=== PATIENT | male | born 1975 | race Caucasian/White ===

== ENCOUNTER 2019-07-01 20:36 | Inpatient (IN) | payer OTHER ==
[2019-07-01] MEDS ORDERED: ASPIRIN 81 MG CHEWABLE TABLETS PO ONE (20:42)
--- NOTE | 2019-07-01 20:42 | PDOC ---
Rapid Medical Evaluation Time Seen by Provider: 07/01/19 20:39 Medical Evaluation: 07/01/19 20:39 I performed a brief in-person evaluation of this patient. Healthy 44-year-old male with three days of chest pain radiating to left arm and back, SOB, orthopnea, cough. Pertinent physical exam findings: Tachycardic, RRR, S1/S2. Tachypneic, lungs CTAB. Mild diaphoresis. I have ordered the following: EKG CXR Cardiac labs ASA Patient to proceed to: ED for further evaluation Discharge Disposition - Diagnosis Chest pain - Referrals - Patient Instructions - Post Discharge Activity
--- NOTE | 2019-07-01 21:34 | PDOC ---
History of Present Illness - General Chief Complaint: Pain Stated Complaint: LT UNDER ARM PAIN Time Seen by Provider: 07/01/19 20:39 History Source: Patient Exam Limitations: Language Barrier - History of Present Illness Initial Comments: 07/01/19 21:31 44y M with no significant PMH presenting to ED for chest pain and SOB x3 days. Patient states the pain started 3 days ago and he does not recall what he was doing. The pain got worse today and was more constant. He feels pain with inspiration and when he lays down. Endorses dry cough. Pain is on the L side of the chest and radiates to the back. Denies fever, chills, injury, abdominal pain , n/v/d, headache. No history of OR in the family. No recent surgeries. he went to a clinic and was given Tessalon Perles and albuterol inhaler. PMD: none PMH: none PSH: appendectomy many years ago meds: none Allergies: nkda Social: smokes 2 cigarettes/day Past History - Past Medical History Allergies/Adverse Reactions: Allergies Allergy/AdvReac Type Severity Reaction Status Date / Time No Known Allergies Allergy Verified 07/01/19 20:42 COPD: No - Psycho Social/Smoking Cessation Hx Smoking History: Current every day smoker Information on smoking cessation initiated: No Review of Systems - Review of Systems Constitutional: No: Symptoms Reported HEENTM: No: Symptoms Reported Respiratory: Yes: See HPI Cardiac (ROS): Yes: See HPI ABD/GI: No: Symptoms Reported : No: Symptoms Reported Musculoskeletal: No: Symptoms Reported Integumentary: No: Symptoms Reported Neurological: No: Symptoms reported *Physical Exam - Vital Signs Last Vital Signs Temp Pulse Resp BP Pulse Ox 98.3 F 70 18 151/84 96 07/01/19 20:39 07/01/19 20:39 07/01/19 20:39 07/01/19 20:39 07/01/19 20:39 - Physical Exam General Appearance: Yes: Nourished, Appropriately Dressed. No: Apparent Distress HEENT: positive: EOMI, NAVID, Normal ENT Inspection Neck: positive: Trachea midline, Supple. negative: Carotid bruit, Lymphadenopathy (R) Respiratory/Chest: positive: Lungs Clear, Normal Breath Sounds. negative: Crackles, Rales, Rhonchi, Stridor, Wheezing, Plerual Rub Cardiovascular: positive: Regular Rhythm, Regular Rate, S1, S2. negative: Edema , JVD, Murmur Vascular Pulses: Dorsalis-Pedis (R): 2+, Doralis-Pedis (L): 2+ Gastrointestinal/Abdominal: positive: Normal Bowel Sounds, Soft. negative: Tender Musculoskeletal: negative: CVA Tenderness Extremity: positive: Normal Capillary Refill. negative: Swelling, Calf Tenderness, Erythema Integumentary: positive: Normal Color, Dry, Warm Neurologic: positive: edi consultant II-XII NML intact, Fully Oriented, Alert, Normal Mood/ Affect, Normal Response, Motor Strength 5/5 Heart Score/ECG Review - History History: Slightly suspicious - Electrocardiogram EKG: Non specific repolarization disturbance - Age Age: 45-65 - Risk Factors Risk Factors Heart Score: Yes Smoking History Based on the list above the patient has:: 1-2 risk factors - Troponin Troponin: </= normal limit - Score Heart Score - Total: 3 ED Treatment Course - LABORATORY CBC & Chemistry Diagram: 07/01/19 22:30 07/01/19 22:30 Medical Decision Making - Medical Decision Making 07/02/19 00:22 44y M with no significant PMH presenting for L sided CP, SOB, cough vitals wnl Ddx: pna, ptx, pna, pe, dissection, pleurisy, gerd/gastritis, costochondritis, mass/malignancy will obtain labs, d-dimer, coags, cardiac workup ASA orderd by E cxr shows infiltrate/consolidation v. effusion in LLL. white count elevated which can support dx of pna. will start levaquin d-dimer elevated. will obtain CTA pna v. dissection v. pe. given that patient does not have a pmd, no follow up, will benefit from admission signed out to Dr Goode Discharge - Discharge Information Problems reviewed: Yes Clinical Impression/Diagnosis: Shortness of breath Chest pain Qualifiers: Chest pain type: unspecified Qualified Code(s): R07.9 - Chest pain, unspecified Condition: Stable - Admission Yes - Follow up/Referral - Patient Discharge Instructions - Post Discharge Activity
--- NOTE | 2019-07-01 21:44 | PDOC ---
Attending Attestation - Resident Resident Name: LashondaMaria Elena - ED Attending Attestation I have performed the following: I have examined & evaluated the patient, The case was reviewed & discussed with the resident, I agree w/resident's findings & plan - HPI HPI: 07/01/19 21:56 see resident hpi - Physicial Exam PE: 07/01/19 21:57 agree with resident exam - Medical Decision Making 07/01/19 21:57 44-year-old male with smoking history complaining of several days of left-sided chest pain radiating into the shoulder blade, generally present in a supine position and relieved while sitting He has had recent URI symptoms Plan for labs including 1 troponin and a d-dimer due to pleuritic nature of pain EKG shows an incomplete right bundle with no old for comparison Heart score is 3 Due to patient's history, heart score and presentation patient will likely be discharged on NSAIDs pending results
[2019-07-01] MEDS ORDERED: ASPIRIN 81 MG CHEWABLE TABLETS ONE (21:50)
[2019-07-01 22:43] LABS: BASO % 0.7 % (0-2.0); EOS % 1.5 % (0-4.5); HEMATOCRIT 38.4 % (35.4-49); HEMOGLOBIN 12.8 GM/dL (11.7-16.9); LYMPH % 12.5 % (8-40); MCH 28.1 pg (25.7-33.7); MCHC 33.3 g/dl (32.0-35.9); MEAN CELL VOLUME 84.5 fl (80-96); MEAN PLT VOLUME 7.4 fl (7.5-11.1); MONO % 7.9 % (3.8-10.2); NEUT % 77.4 % (42.8-82.8); PLATELET COUNT 331 K/MM3 (134-434); RBC 4.54 M/mm3 (4.00-5.60); RDW 12.6 % (11.9-15.9); WHITE BLOOD COUNT 16.6 K/mm3 (4.0-10.0)
[2019-07-01 23:13] LABS: ALBUMIN 3.2 g/dl (3.4-5.0); ALK PHOS 90 U/L (45-117); ANION GAP 7 MMOL/L (8-16); BILIRUBIN,TOTAL 0.7 mg/dL (0.2-1); BLOOD UREA NITROGEN 13.5 mg/dL (7-18); CALCIUM 8.4 mg/dL (8.5-10.1); CHLORIDE 105 mmol/L (98-107); CO2 26 mmol/L (21-32); CREATININE 0.8 mg/dL (0.55-1.3); GLUCOSE,RANDOM 98 mg/dL (74-106); POTASSIUM 3.4 mmol/L (3.5-5.1); SGOT/AST 19 U/L (15-37); SGPT/ALT 28 U/L (13-61); SODIUM 138 mmol/L (136-145); TOT PROT 7.5 g/dl (6.4-8.2)
[2019-07-01 23:36] LABS: INR 1.33 (0.83-1.09); PROTHROMBIN TIME (PATIENT) 15.7 SEC (9.7-13.0)
--- NOTE | 2019-07-02 00:08 | PDOC ---
*Physical Exam - Vital Signs Last Vital Signs Temp Pulse Resp BP Pulse Ox 98.3 F 70 18 151/84 96 07/01/19 20:39 07/01/19 20:39 07/01/19 20:39 07/01/19 20:39 07/01/19 20:39 ED Treatment Course - LABORATORY CBC & Chemistry Diagram: 07/01/19 22:30 07/01/19 22:30 - ADDITIONAL ORDERS Additional order review: Laboratory Results 07/01/19 07/01/19 07/01/19 22:30 22:30 22:30 PT with INR 15.70 H INR 1.33 H PTT (Actin FS) 35.7 D-Dimer 1020 H Sodium Potassium Chloride Carbon Dioxide Anion Gap BUN Creatinine Est GFR (CKD-EPI)AfAm Est GFR (CKD-EPI)NonAf Random Glucose Calcium Total Bilirubin AST ALT Alkaline Phosphatase Creatine Kinase Troponin I B-Natriuretic Peptide Total Protein Albumin 07/01/19 07/01/19 07/01/19 22:30 22:30 22:30 PT with INR INR PTT (Actin FS) D-Dimer Sodium Cancelled 138 Potassium Cancelled 3.4 L Chloride Cancelled 105 Carbon Dioxide Cancelled 26 Anion Gap Cancelled 7 L BUN Cancelled 13.5 Creatinine Cancelled 0.8 Est GFR (CKD-EPI)AfAm Cancelled 125.04 Est GFR (CKD-EPI)NonAf Cancelled 107.88 Random Glucose Cancelled 98 Calcium Cancelled 8.4 L Total Bilirubin Cancelled 0.7 AST Cancelled 19 ALT Cancelled 28 Alkaline Phosphatase Cancelled 90 Creatine Kinase 110 Troponin I < 0.02 B-Natriuretic Peptide Cancelled 143.0 H Total Protein Cancelled 7.5 Albumin Cancelled 3.2 L 07/01/19 22:30 RBC 4.54 MCV 84.5 MCHC 33.3 RDW 12.6 MPV 7.4 L Neutrophils % 77.4 Lymphocytes % 12.5 Monocytes % 7.9 Eosinophils % 1.5 Basophils % 0.7 - Medications Given in the ED: ED Medications Discontinued Medications Generic Name Dose Route Start Last Admin Trade Name Freq PRN Reason Stop Dose Admin Aspirin 324 mg 07/01/19 20:42 07/01/19 22:12 Asa - PO 07/01/19 20:43 324 mg ONCE ONE Administration Medical Decision Making - Medical Decision Making Patient signed out by Dr. Gallego 44y M with no significant PMH presenting to ED for chest pain and SOB x3 days. Treated for LLL PNA on CXR with levaquin Tpn undetectable D-dimer>1000 EKG with incomplete RBBB pattern Pending CTA 07/02/19 00:07 CTA as read by imaging transportation maintenance specialist: "FINDINGS: There is no PE or dissection. Heart size is normal. The trachea and bronchi are patent. There is no pericardial effusion. Left lower lobe consolidation is suspicious for pneumonia. There is a moderate sized left pleural effusion. Mild right basilar atelectasis is noted.. No fractures identified. The upper abdominal structures are normal. IMPRESSION: Suspected left lower lobe pneumonia with moderate-sized left pleural effusion." 07/02/19 02:58 Patient tachypnic in the 30s Plan for admission for pneumonia as patient is without reliable follow-up 07/02/19 03:[address] Purcell who accepted patient for med/surg admission under Dr. Contreras 07/02/19 04:25 Discharge - Discharge Information Problems reviewed: Yes Clinical Impression/Diagnosis: Shortness of breath Chest pain Qualifiers: Chest pain type: unspecified Qualified Code(s): R07.9 - Chest pain, unspecified Pneumonia Qualifiers: Pneumonia type: due to unspecified organism Laterality: left Lung location: lower lobe of lung Qualified Code(s): J18.9 - Pneumonia, unspecified organism Condition: Stable - Admission Yes - Follow up/Referral - Patient Discharge Instructions - Post Discharge Activity
--- NOTE | 2019-07-02 03:59 | PN ---
<Sarai Contreras - Last Filed: 07/02/19 06:50> Teaching Attending Note Name of Resident: Solomon Singer ATTENDING PHYSICIAN STATEMENT I saw and evaluated the patient. I reviewed the resident's note and discussed the case with the resident. I agree with the resident's findings and plan as documented. SUBJECTIVE: Patient is a 44 year old man with PMH of Appendectomy and Tobacco use presenting to ED for chest pain and SOB x3 days. Patient states the pain started 3 days ago and he does not recall what he was doing. The pain got worse today and was more constant. He feels pain with inspiration and when he lays down. Endorses dry cough. Pain is on the L side of the chest and radiates to the back. Denies fever, chills, injury, abdominal pain, nausea, vomiting, diarrhea or headache. No history of AL in the family. No recent surgeries. He went to an Urgent Care center and was given Tessalon Perles and albuterol inhaler. OBJECTIVE: Alert Vital Signs Period Temp Pulse Resp BP Sys/Guerrero Pulse Ox Last 24 Hr 98.3 F-99.3 F 70-75 18-18 126-151/73-84 96-97 HEENT: No Jaundice, eye redness or discharge, PERRLA, EOMI. Normocephalic, atraumatic. External ears are normal and hearing is grossly intact. No nasal discharge. Neck: Supple, nontender. No palpable adenopathy or thyromegaly. No JVD Chest: Good effort. Poor air entry in the left base and intermittent rhonchi. Clear to percussion. Heart: Regular. No S3, rub or murmur Abdomen: Not distended, soft, nontender and no HSM. No rebound or guarding. Normal bowel sounds. Ext: Peripheral pulses intact. No leg edema. Skin: Warm and dry. No petechiae, rash or ecchymosis. Neuro: Alert. Oriented x3. CN 2-12 grossly intact. Sensation grossly intact in all four extremities and DTR are symmetric. Psych: Appropriate mood and affect. Good insight. Abnormal Lab Results 07/01/19 07/01/19 07/01/19 22:30 22:30 22:30 WBC 16.6 H MPV 7.4 L Absolute Neuts (auto) 12.8 H PT with INR 15.70 H INR 1.33 H D-Dimer Potassium 3.4 L Anion Gap 7 L Calcium 8.4 L B-Natriuretic Peptide 143.0 H Albumin 3.2 L 07/01/19 22:30 WBC MPV Absolute Neuts (auto) PT with INR INR D-Dimer 1020 H Potassium Anion Gap Calcium B-Natriuretic Peptide Albumin ASSESSMENT AND PLAN: 1. LLL Pneumonia and pleural effusion - CXR shows LLL consolidation, pleural effusion and trachea deviation to the right. Chest CTA shows suspected left lower lobe pneumonia with moderate-sized left pleural effusion, but no pulmonary embolism. Sepsis workup done and will treat with IV Rocephin and Azithromycin. Hypokalemia is unexplained - will check urine potassium, serum Mg + and treat with IV and PO KCL. Will get an ECHO, HIV testing, consult ID and Pulmonary. Consider diagnostic thoracentesis if effusion cherry not resolve promptly. Will continue comprehensive care for all of patients comorbid conditions. 2. Hypoalbuminemia - Possibly due to combined effects of malnutrition and inflammation associated with comorbid chronic conditions. Will ensure adequate dietary protein intake and also consult telephone information clerk. Urinalysis pending. 3. Tobacco Use Counseled on risks associated with tobacco use. We will provide patient all the necessary assistance to facilitate smoking cessation and prescribe Nicotine patch. 4. Obesity Counseled on the risks associated with obesity. Will provide patient all the necessary assistance, counseling and positive reinforcement to facilitate weight loss. Consult telephone information clerk. 5. DVT prophylaxis - Lovenox 40 mg SQ q 24 hours. 6. Advance directives - Full code <Franki Lawson - Last Filed: 07/02/19 15:44> Teaching Attending Note DAY ATTENDING PHYSICIAN STATEMENT I saw and evaluated the patient. I reviewed the resident's note and discussed the case with the resident. I agree with the resident's findings and plan as documented. Obtained patient from overnights; pulmonary doesn't feel that there is enough fluid to sample. Checking prealbumin FU echo. CP is not likely cardiac given compelling other explanation, age, and risks. Consider steroids for COPD; will discuss with pulmonary Full Code
[2019-07-02] MEDS ORDERED: POTASSIUM CHLORIDE TABS 20 MEQ TABLET.ER (FP) PO ONE ×4 (04:40→08:52)
--- NOTE | 2019-07-02 04:48 | HP ---
CHIEF COMPLAINT: Cough, SOB PCP: None HISTORY OF PRESENT ILLNESS: Patient is a 44 year old male no significant PMH who presents with dyspnea and dry cough for 3 days. Endorses occasional L pleuritic chest pain. No fevers, chills, nausea, vomiting, rhinorrhea, palpitations. No leg swelling, recent travel, surgery, or immobilization. No sick contacts. Pt went to urgent care today and was given benzonatate and albuterol which did not alleviate his symptoms. Recent Travel: denies PAST MEDICAL HISTORY: Denies PAST SURGICAL HISTORY: Appendectomy Social History: Smokin cigarettes/day Alcohol: denies Drugs: denies Allergies No Known Allergies Allergy (Verified 07/01/19 20:42) HOME MEDICATIONS: REVIEW OF SYSTEMS CONSTITUTIONAL: Absent: fever, chills, diaphoresis, generalized weakness, malaise, loss of appetite, weight change HEENT: Absent: rhinorrhea, nasal congestion, throat pain, throat swelling, difficulty swallowing, mouth swelling, ear pain, eye pain, visual changes CARDIOVASCULAR: pleuritic chest pain Absent: syncope, palpitations, irregular heart rate, lightheadedness, peripheral edema RESPIRATORY: cough, shortness of breath Absent: dyspnea with exertion, orthopnea, wheezing, stridor, hemoptysis GASTROINTESTINAL: Absent: abdominal pain, abdominal distension, nausea, vomiting, diarrhea, constipation, melena, hematochezia GENITOURINARY: Absent: dysuria, frequency, urgency, hesitancy, hematuria, flank pain, genital pain MUSCULOSKELETAL: Absent: myalgia, arthralgia, joint swelling, back pain, neck pain SKIN: Absent: rash, itching, pallor HEMATOLOGIC/IMMUNOLOGIC: Absent: easy bleeding, easy bruising, lymphadenopathy, frequent infections ENDOCRINE: Absent: unexplained weight gain, unexplained weight loss, heat intolerance, cold intolerance NEUROLOGIC: Absent: headache, focal weakness or paresthesias, dizziness, unsteady gait, seizure, mental status changes, bladder or bowel incontinence PSYCHIATRIC: Absent: anxiety, depression, suicidal or homicidal ideation, hallucinations. PHYSICAL EXAMINATION Vital Signs - 24 hr 07/01/19 07/01/19 20:39 21:30 Temperature 98.3 F 99.3 F Pulse Rate 70 Pulse Rate [ 75 Right Radial] Respiratory 18 18 Rate Blood Pressure 151/84 Blood Pressure 126/73 [Left Arm] O2 Sat by Pulse 96 97 Oximetry (%) GENERAL: Awake, alert, and fully oriented, in no acute distress. HEAD: Normal with no signs of trauma. EYES: Pupils equal, round and reactive to light, extraocular movements intact, sclera anicteric, conjunctiva clear. No lid lag. EARS, NOSE, THROAT: Ears normal, nares patent, oropharynx clear without exudates. Moist mucous membranes. NECK: Normal range of motion, supple without lymphadenopathy, JVD, or masses. LUNGS: Breath sounds equal, clear to auscultation bilaterally. No wheezes, and no crackles. No accessory muscle use. HEART: Regular rate and rhythm, normal S1 and S2 without murmur, rub or gallop. ABDOMEN: Soft, nontender, not distended, normoactive bowel sounds, no guarding, no rebound, no masses. No hepatomegaly or splenomegaly. MUSCULOSKELETAL: Normal range of motion at all joints. No bony deformities or tenderness. No CVA tenderness. UPPER EXTREMITIES: 2+ pulses, warm, well-perfused. No cyanosis. No clubbing. No peripheral edema. LOWER EXTREMITIES: 2+ pulses, warm, well-perfused. No calf tenderness. No peripheral edema. NEUROLOGICAL: Cranial nerves II-XII intact. Normal speech. Normal gait. PSYCHIATRIC: Cooperative. Good eye contact. Appropriate mood and affect. SKIN: Warm, dry, normal turgor, no rashes or lesions noted, normal capillary refill. Laboratory Results - last 24 hr CBC, BMP 07/01/19 22:30 07/01/19 22:30 ASSESSMENT/PLAN: Patient is a 44 year old male no significant PMH who presents with dyspnea and dry cough for 3 days. #Pneumonia CXR: LLL infiltrate CTA: no evidence of PE or dissecion; LLL pneumonia; mod-sized L pleural effusion CURB-65: 1 Pt received levaquin 750mg in ED. Will cont 1gm ceftriaxone, 50mg azithromycin Unknown risk factor for pna in pt of this age and w/o co-morbidities. ? Immunocompromised F/u HIV testing Pt may need to be tapped for evaluation of effusion Pulmonary constuled (Dr. Freed) ID (Dr. Myles) consulted #Hypokalemia Unexplained cause Will f/u Mg level Give Mg-ox 800 and replenish K+ prn #FEN IV NS @ 100ml/hr Regular diet #DVT ppx Heparin sq #Dispo Med-surg Visit type - Emergency Visit Emergency Visit: Yes ED Registration Date: 07/02/19 Care time: The patient presented to the Emergency Department on the above date and was hospitalized for further evaluation of their emergent condition. - New Patient This patient is new to me today: Yes Date on this admission: 08/24/19 - Critical Care Critical Care patient: No ATTENDING PHYSICIAN STATEMENT I saw and evaluated the patient. I reviewed the resident's note and discussed the case with the resident. I agree with the resident's findings and plan as documented. SUBJECTIVE: OBJECTIVE: ASSESSMENT AND PLAN:
[2019-07-02] MEDS ORDERED: MAGNESIUM OXIDE 400 MG TABLET (FP) PO ONE (05:34)
[2019-07-02] MEDS: SODIUM CHLORIDE 1,000 ML IV SCH ×2 (05:40→18:04)
[2019-07-02] MEDS ORDERED: MAGNESIUM OXIDE 400 MG TABLET (FP) ONE (06:42)
[2019-07-02] MEDS ORDERED: HEPARIN NA (PORCINE) 5,000 UNITS/ML 1ML VIAL ONE (06:43)
[2019-07-02 06:52] LABS: BASO % 0.3 % (0-2.0); EOS % 1.8 % (0-4.5); HEMATOCRIT 34.7 % (35.4-49); HEMOGLOBIN 12.1 GM/dL (11.7-16.9); LYMPH % 11.5 % (8-40); MCH 29.1 pg (25.7-33.7); MEAN CELL VOLUME 83.3 fl (80-96); MEAN PLT VOLUME 7.5 fl (7.5-11.1); MONO % 8.2 % (3.8-10.2); NEUT % 78.2 % (42.8-82.8); PLATELET COUNT 310 K/MM3 (134-434); RBC 4.16 M/mm3 (4.00-5.60); RDW 12.2 % (11.9-15.9); WHITE BLOOD COUNT 14.3 K/mm3 (4.0-10.0)
[2019-07-02] MEDS: HEPARIN NA (PORCINE) 5,000 UNITS/ML 1ML VIAL SQ SCH ×3 (06:54→21:59)
[2019-07-02 07:01] LABS: ALBUMIN 2.9 g/dl (3.4-5.0); BILIRUBIN,TOTAL 0.9 mg/dL (0.2-1); BLOOD UREA NITROGEN 11.6 mg/dL (7-18); CALCIUM 8.2 mg/dL (8.5-10.1); CREATININE 0.6 mg/dL (0.55-1.3); MAGNESIUM 2.5 mg/dL (1.8-2.4); POTASSIUM 3.3 mmol/L (3.5-5.1); TOT PROT 6.9 g/dl (6.4-8.2)
[2019-07-02] MEDS ORDERED: ACETAMINOPHEN 1000 MG/100 ML VIAL (NON FORMULARY) IVPB ONE (08:24)
[2019-07-02] MEDS ORDERED: ACETAMINOPHEN 325 MG TABLET (FP) PO PRN (08:26)
[2019-07-02] MEDS ORDERED: ACETAMINOPHEN INJECTION 100 ML IVPB ONE (08:52)
[2019-07-02] MEDS: CEFTRIAXONE 1 GM in DEXTROSE 5%-WATER - 50 ML IVPB SCH (10:00)
[2019-07-02] MEDS ORDERED: AZITHROMYCIN IVPB 500 MG in DEXTROSE 5%-WATER - 250 ML IVPB SCH (10:00)
[2019-07-02] MEDS ORDERED: CEFTRIAXONE 1 GM/50 ML BAG ONE (10:02)
--- NOTE | 2019-07-02 11:11 | CON.PULM ---
Consult Consult Specialty:: PULM/CCM Referred by:: Hospitalist Reason for Consultation:: SOB - History of Present Illness Chief Complaint: CP and SOB History of Present Illness: 44 M,. daily smoker "2 cigarillos at least" and no additional medical history. Admitted via the ER due to pleuritic type left sided chest discomfort and congested cough for the past 3 days. No recent travel history or sick contacts. No hemoptysis or night sweats. No known previous exposure to TB. Works in a kitchen cleaning and some maintenance. He went to an urgent care and was prescribed benzonate and Albuterol but his symptoms worsened. There is no specific history that would be consistent with OSAS. CTA: No PE / dense LL consolidation / surrounding small likely para-pneumonic effusion - History Source History Provided By: Patient Limitations to Obtaining History: No Limitations - Past Medical History Pulmonary: No: Asthma, Bronchitis, Cancer, COPD, O2 Dependent, Pneumonia, Previously Intubated, Pulmonary Embolus, Pulmonary Fibrosis, Sleep Apnea - Smoking History Smoking history: Current every day smoker Home Medications - Allergies Allergies/Adverse Reactions: Allergies Allergy/AdvReac Type Severity Reaction Status Date / Time No Known Allergies Allergy Verified 07/01/19 20:42 Review of Systems - Review of Systems Constitutional: reports: Chills, Fever, Malaise. denies: Night Sweats, Unintentional Wgt. Loss, Weakness Eyes: reports: No Symptoms HENT: reports: No Symptoms Neck: reports: No Symptoms Cardiovascular: reports: Chest Pain, Shortness of Breath. denies: Edema, Palpitations Respiratory: reports: Cough, SOB, SOB on Exertion. denies: Hemoptysis, Orthopnea, PND, Snoring, Wheezing Gastrointestinal: reports: No Symptoms Genitourinary: reports: No Symptoms Breasts: reports: No Symptoms Reported Musculoskeletal: reports: No Symptoms Integumentary: reports: No Symptoms Neurological: reports: No Symptoms Endocrine: reports: No Symptoms Hematology/Lymphatic: reports: No Symptoms Psychiatric: reports: No Symptoms Physical Exam Vital Sings: Vital Signs Temperature 98.2 F 07/02/19 09:25 Pulse Rate 84 07/02/19 09:25 Respiratory Rate 24 H 07/02/19 09:25 Blood Pressure 126/80 07/02/19 09:25 O2 Sat by Pulse Oximetry (%) 93 L 12/24/19 09:25 Constitutional: Yes: No Distress, Calm Eyes: Yes: Conjunctiva Clear, EOM Intact HENT: Yes: Atraumatic, Normocephalic Neck: Yes: Supple, Trachea Midline Cardiovascular: Yes: Regular Rate and Rhythm Respiratory: Yes: Cough, Diminished, On Nasal O2, Rhonchi, SOB, SOB on Exertion , Tachypnea. No: Accessory Muscle Use, Rales, Stridor, Wheezes ...Inspection: Yes: WNL ...Clubbing: No Gastrointestinal: Yes: Normal Bowel Sounds, Soft Renal/: Yes: WNL Musculoskeletal: Yes: WNL Extremities: Yes: WNL Edema: No Peripheral Pulses WNL: Yes Integumentary: Yes: WNL Neurological: Yes: WNL, Alert, Oriented ...Motor Strength: WNL Psychiatric: Yes: WNL, Alert, Oriented Labs: CBC, BMP 07/02/19 06:30 07/02/19 05:34 Imaging - Results Chest X-ray: Report Reviewed, Image Reviewed Cat Scan: Report Reviewed, Image Reviewed Problem List - Problems (1) Pleural effusion on left Code(s): J90 - PLEURAL EFFUSION, NOT ELSEWHERE CLASSIFIED (2) Smoker Code(s): F17.200 - NICOTINE DEPENDENCE, UNSPECIFIED, UNCOMPLICATED (3) Chest pain Code(s): R07.9 - CHEST PAIN, UNSPECIFIED Qualifiers: Chest pain type: unspecified Qualified Code(s): R07.9 - Chest pain, unspecified (4) Pneumonia Code(s): J18.9 - PNEUMONIA, UNSPECIFIED ORGANISM Qualifiers: Pneumonia type: due to unspecified organism Laterality: left Lung location: lower lobe of lung Qualified Code(s): J18.9 - Pneumonia, unspecified organism (5) Shortness of breath Code(s): R06.02 - SHORTNESS OF BREATH Assessment/Plan Rocephin / Zithromax; noted ID consult has been called Supplemental O2 as needed Check urine antigen Check sputum Do not feel there is enough fluid to safely sample at this point: if CP worsens and increasing fever: will need to R/O Empyema Daily Medrol BD [place] PRN Smoking cessation discussed Outpatient PFTs after discharge and stable Will follow Thank you. Dr Robins
[2019-07-02] MEDS ORDERED: AZITHROMYCIN IVPB 500 MG/250 ML BAG IVPB ONE (11:14)
--- NOTE | 2019-07-02 12:13 | EKG ---
Test Reason : Blood Pressure : / mmHG Vent. Rate : 077 BPM Atrial Rate : 077 BPM P-R Int : 128 ms QRS Dur : 110 ms QT Int : 368 ms P-R-T Axes : 036 005 033 degrees QTc Int : 416 ms NORMAL SINUS RHYTHM INCOMPLETE RIGHT BUNDLE BRANCH BLOCK BORDERLINE ECG NO PREVIOUS ECGS AVAILABLE Confirmed by MD Marcelo, Zohaib ([id number]) on 07/02/2019 12:12:56 PM Referred By: Confirmed By:Zohaib Robertson MD
[2019-07-02 16:26] VITALS: BMI 30.2
[2019-07-02] MEDS ORDERED: PNEUMOC 13-VAL CONJ-DIP CRM/PF 0.5 ML DISP.SYRIN IM ONE (16:26)
[2019-07-02] MEDS ORDERED: FLU VACCINE QUAD 60 MCG/0.5 ML (MDV 19-20) IM ONE (17:00)
[2019-07-02] MEDS ORDERED: PNEUMOCOCCAL 23 VACCINE 0.5 ML VIAL IM ONE (17:00)
--- NOTE | 2019-07-02 17:48 | PN ---
Progress Note (short form) - Note Progress Note: Hospitalist Medicine C/o SOB and productive cough with yellow sputum. Vitals 07/02/19 13:45 Temperature 99.1 F Pulse Rate 66 Respiratory 18 Rate Blood Pressure 131/66 Physical Exam general: resting in bed, in NAD HEENT: NCAT, PERRLA neck: supple cardio: S1, S2, RRR. no r/m/g pulm: +scattered rhonchi . w intermittent cough. mild accessory m usage abdomen: nontender, nondistended LE: 2+ pulses, no edema Laboratory Tests 07/02/19 07/02/19 07/02/19 05:34 06:30 06:30 WBC 14.3 H Hgb 12.1 Hct 34.7 L Plt Count 310 Sodium 139 Potassium 3.3 L Chloride 106 Carbon Dioxide 27 Anion Gap 7 L BUN 11.6 Creatinine 0.6 Random Glucose 113 H Albumin 2.9 L HIV 1&2 Ag/Ab, 4th Gen Pending Microbiology 07/02/19 13:16 Sputum - Expectorated Gram Stain - Final Imaging 07/01/19: CXR: weak inspiration w prominent mediastinum, fluid w atelectasis at the L base. 07/01/19: EKG: incomplete RBBB, qtc 416ms 07/02/19: Chest CTA: suboptimal opacification of the pulm vasculature, no def evidence of PE. moderate L pleural effusion with lower lobe consolidation/ atelectasis, trace R pleural effusion with basilar atelectasis. Assessment/Plan 44 year old man with PMH of Appendectomy and Tobacco use, who presented to ED for chest pain and SOB x3 days. #L pleural effusion #CAP -c/w cef, zithro (Day 2) -duonebs RQID, ventolin PRN -tylenol PRN for fever/pain -pl eff: not enough fluid to sample, however if chest pain worsens and becomes febrile, may need to r/o empyema. -on medrol 40mg q8h -on IVF , incentive spirometer -f/u sputum cx, urine legionella ag, HIV -Pulm: Dr. Robins -ID: Dr. Myles #F/E/N IV NS 100 cc/hr continue to follow lytes reg diet #PPX DVT: hep 5k TID #Dispo monitoring on med-surg smoking cessation needed outpatient PFTs after d/c once stable <Aliza Jordan - Last Filed: 07/02/19 17:58> - Note Progress Note: Seen and examined; please refer to resident note for further historical information. I agree with their assessment and plan as documented aside from as supplemented by myself. I independently verified all hickey historical information and exam findings and independently reviewed all diagnostic information. No further issues; agree with subjective documentation above. 10 sys ROS done and negative aside from HPI GENERAL: Awake, alert, and fully oriented HEAD: Normal with no signs of trauma. EYES: Pupils equal, round and reactive to light, extraocular movements intact EARS, NOSE, THROAT: Ears normal, nares patent, oropharynx clear without exudates. Moist mucous membranes. NECK: Normal range of motion, supple without lymphadenopathy, JVD, or masses. LUNGS: Breath sounds with improved rales compared to admission hpi; no crackles. No accessory muscle use. HEART: Regular rate and rhythm, normal S1 and S2 without murmur, rub or gallop. ABDOMEN: Soft, nontender, not distended, normoactive bowel sounds MUSCULOSKELETAL: Normal range of motion at all joints. No bony deformities or tenderness. No CVA tenderness. NEUROLOGICAL: Cranial nerves II-XII intact. Normal speech. Normal gait. PSYCHIATRIC: Cooperative. Good eye contact. Appropriate mood and affect. SKIN: Warm, dry, normal turgor, no rashes or lesions noted, normal capillary refill. Echo pending Tele reviewed EKG reviewed CT reviewed; PNA noted A/P: Patient with pneumonia with effusion; continue with abx. ID and pulmonary consulted. Doesn't look to be enough fluid to frankly sample out of the lungs. Likely underlying COPD but no PFTs to r/o. Monitorting on floor, continue abx , BDs, and FU with subspecialty consults as indicated. Will need to discuss if there is enough fluid to feasably sample to r/o empyema if he clinically worsens but he does not appear to be doing so. Problems include: -Acute respiratory failure, improved -Pneumonia with effusion -Likely underlying COPD pending pulm eval -Hx tobacco abuse, counseled DVT px reviewed Full Code <Franki Lawson - Last Filed: 07/05/19 02:29>
--- NOTE | 2019-07-02 17:48 | PN ---
Progress Note (short form) - Note Progress Note: ID consult dictated imp/reccd CAP continue rocephin/zithromax has gotten multiple antibioitics so there is no point to blood cultures at this point unless he has further fever check urinary antigens please call back if needed Problem List - Problems (1) Pneumonia Code(s): J18.9 - PNEUMONIA, UNSPECIFIED ORGANISM Qualifiers: Pneumonia type: due to unspecified organism Laterality: left Lung location: lower lobe of lung Qualified Code(s): J18.9 - Pneumonia, unspecified organism
[2019-07-02] MEDS ORDERED: ALBUTEROL SO4 0.083% IH SOL 2.5 MG/3 ML VIAL.NEB. NEB PRN (17:54)
[2019-07-02] MEDS: methylPREDNISolone NA SUCC 40 MG/1 ML VIAL IVPUSH SCH (18:04)
[2019-07-02] MEDS: ALBUTEROL SO4 2.5/IPRATROPIUM 0.5 INH SOL 3 ML VIAL.NEB. NEB SCH (21:34)
[2019-07-03] MEDS: methylPREDNISolone NA SUCC 40 MG/1 ML VIAL IVPUSH SCH ×3 (02:52→18:04)
[2019-07-03] MEDS: SODIUM CHLORIDE 1,000 ML IV SCH (04:29)
[2019-07-03] MEDS: HEPARIN NA (PORCINE) 5,000 UNITS/ML 1ML VIAL SQ SCH ×3 (06:30→22:08)
[2019-07-03] MEDS: ALBUTEROL SO4 2.5/IPRATROPIUM 0.5 INH SOL 3 ML VIAL.NEB. NEB SCH ×4 (08:15→21:22)
[2019-07-03 08:32] LABS: BASO % 0.3 % (0-2.0); EOS % 0.1 % (0-4.5); HEMATOCRIT 38.2 % (35.4-49); HEMOGLOBIN 12.5 GM/dL (11.7-16.9); LYMPH % 7.1 % (8-40); MCHC 32.8 g/dl (32.0-35.9); MEAN CELL VOLUME 85.4 fl (80-96); MEAN PLT VOLUME 7.7 fl (7.5-11.1); MONO % 2.4 % (3.8-10.2); NEUT % 90.1 % (42.8-82.8); PLATELET COUNT 351 K/MM3 (134-434); RBC 4.47 M/mm3 (4.00-5.60); RDW 12.5 % (11.9-15.9); WHITE BLOOD COUNT 16.8 K/mm3 (4.0-10.0)
[2019-07-03 09:07] LABS: ALBUMIN 2.7 g/dl (3.4-5.0); BILIRUBIN,TOTAL 0.5 mg/dL (0.2-1); BLOOD UREA NITROGEN 14.4 mg/dL (7-18); CALCIUM 8.2 mg/dL (8.5-10.1); CREATININE 0.7 mg/dL (0.55-1.3); MAGNESIUM 2.8 mg/dL (1.8-2.4); PHOSPHOROUS 3.5 mg/dL (2.5-4.9); POTASSIUM 4.2 mmol/L (3.5-5.1); TOT PROT 7.1 g/dl (6.4-8.2)
[2019-07-03] MEDS ORDERED: cefTRIAXone SODIUM 1 GM VIAL ONE (09:16)
[2019-07-03] MEDS ORDERED: DEXTROSE 5%-WATER - 50 ML IVPB ONE (09:16)
[2019-07-03] MEDS: CEFTRIAXONE 1 GM in DEXTROSE 5%-WATER - 50 ML IVPB SCH (09:31)
--- NOTE | 2019-07-03 10:04 | PN ---
Progress Note (short form) - Note Progress Note: Hospitalist Medicine Receiving neb tx. States breathing is better, however still congested. Vitals 07/03/19 05:00 Temperature 98.6 F Pulse Rate 74 Respiratory 18 Rate Blood Pressure 138/78 Physical Exam general: resting in bed, in NAD HEENT: NCAT, PERRLA neck: supple cardio: S1, S2, RRR. no r/m/g pulm: decreased breath sounds, few rhonchi. mild accessory m usage abdomen: nontender, nondistended LE: 2+ pulses, no edema Laboratory Tests 07/02/19 07/03/19 07/03/19 06:30 08:05 08:05 WBC 16.8 H Hgb 12.5 Hct 38.2 Plt Count 351 Sodium 140 Potassium 4.2 Chloride 109 H Carbon Dioxide 23 BUN 14.4 Creatinine 0.7 Random Glucose 162 H Magnesium 2.8 H Total Protein 7.1 Albumin 2.7 L HIV 1&2 Ag/Ab, 4th Gen Non reactive Microbiology 07/02/19 13:16 Sputum - Expectorated Gram Stain - Final 07/02/19 15:10 Urine For Antigen Detection Legionella Antigen - Preliminary 07/02/19 15:10 Urine For Antigen Detection Streptococcus pneumoniae Antigen (M - Preliminary Imaging 07/01/19: CXR: weak inspiration w prominent mediastinum, fluid w atelectasis at the L base. 07/01/19: EKG: incomplete RBBB, qtc 416ms 07/02/19: Chest CTA: suboptimal opacification of the pulm vasculature, no def evidence of PE. moderate L pleural effusion with lower lobe consolidation/ atelectasis, trace R pleural effusion with basilar atelectasis. 07/03/19: CXR: since 07/01, progressive fluid, atelectasis and or infiltrate at the left base. some new atelectasis at the right base Assessment/Plan 44 year old man with PMH of Appendectomy and Tobacco use, who presented to ED for chest pain and SOB x3 days. #L pleural effusion #CAP -c/w cef, zithro (Day 3) -duonebs RQID, ventolin PRN -tylenol PRN for fever/pain -pl eff: not enough fluid to sample, however if chest pain worsens and becomes febrile, may need to r/o empyema. -on medrol 40mg q8h -on IVF , incentive spirometer -sputum cx, legionella (-) -Pulm: Dr. Robins -ID: Dr. Myles #F/E/N will monitor off IVF continue to follow lytes reg diet #PPX DVT: hep 5k TID #Dispo monitoring on med-surg smoking cessation needed outpatient PFTs after d/c once stable <Aliza Jordan - Last Filed: 07/03/19 14:12> - Note Progress Note: Seen and examined; please refer to resident note for further historical information. I agree with their assessment and plan as documented aside from as supplemented by myself. I independently verified all hickey historical information and exam findings and independently reviewed all diagnostic information. No further issues; agree with subjective documentation above. Cough and SOB continue to improve 10 sys ROS done and negative aside from HPI GENERAL: Awake, alert, and fully oriented HEAD: Normal with no signs of trauma. EYES: Pupils equal, round and reactive to light, extraocular movements intact EARS, NOSE, THROAT: Ears normal, nares patent, oropharynx clear without exudates. Moist mucous membranes. NECK: Normal range of motion, supple without lymphadenopathy, JVD, or masses. LUNGS: Breath sounds with improwved rales compared to admission hpi; no crackles. No accessory muscle use. HEART: Regular rate and rhythm, normal S1 and S2 without murmur, rub or gallop. ABDOMEN: Soft, nontender, not distended, normoactive bowel sounds MUSCULOSKELETAL: Normal range of motion at all joints. No bony deformities or tenderness. No CVA tenderness. NEUROLOGICAL: Cranial nerves II-XII intact. Normal speech. Normal gait. PSYCHIATRIC: Cooperative. Good eye contact. Appropriate mood and affect. SKIN: Warm, dry, normal turgor, no rashes or lesions noted, normal capillary refill. Echo pending Tele reviewed EKG reviewed CT reviewed; PNA noted A/P: Patient with pneumonia with effusion; continue with abx. ID and pulmonary consulted. Doesn't look to be enough fluid to frankly sample out of the lungs. Likely underlying COPD but no PFTs to r/o. Monitorting on floor, continue abx , BDs, and FU with subspecialty consults as indicated. Will need to discuss if there is enough fluid to feasably sample to r/o empyema if he clinically worsens but he does not appear to be doing so. Problems include: -Acute respiratory failure, improved -Pneumonia with effusion -Likely underlying COPD pending pulm eval -Hx tobacco abuse, counseled DVT px reviewed Full Code <Franki Lawson - Last Filed: 07/05/19 02:31>
--- NOTE | 2019-07-03 11:08 | PN ---
Progress Note (short form) - Note Progress Note: Feels a little better today. Slightly less Pleuritic CP today. No hemoptysis. Intake & Output 06/30/19 07/01/19 07/02/19 07/03/19 23:59 23:59 23:59 23:59 Intake Total 600 800 Balance 600 800 Weight 211 lb 211 lb 9.28 oz Last Vital Signs Temp Pulse Resp BP Pulse Ox 98.6 F 74 18 138/78 93 L 07/03/19 05:00 07/03/19 05:00 07/03/19 05:00 07/03/19 05:00 07/02/19 21:00 Active Medications Acetaminophen (Tylenol -) 650 mg PO Q4H PRN PRN Reason: FEVER Albuterol Sulfate (Ventolin 0.083% Nebulizer Soln -) 1 amp NEB Q4H PRN PRN Reason: SHORT OF BREATH/WHEEZING Albuterol/Ipratropium (Duoneb -) 1 amp NEB RQID [facility] Last Admin: 07/02/19 21:34 Dose: 1 amp Heparin Sodium (Porcine) (Heparin -) 5,000 unit SQ TID [facility] Last Admin: 07/03/19 06:30 Dose: 5,000 unit Ceftriaxone Sodium 1 gm/ (Dextrose) 50 mls @ 100 mls/hr IVPB DAILY [facility] Last Admin: 07/03/19 09:31 Dose: 100 mls/hr Azithromycin (Zithromax 500mg Ivpb (Pre-Docked)) 500 mg in 250 mls @ 250 mls/ hr IVPB DAILY [facility] Methylprednisolone Sodium Succinate (Solu-Medrol -) 40 mg IVPUSH Q8H-IV [facility] Last Admin: 07/03/19 09:28 Dose: 40 mg Constitutional: Yes: No Distress, Calm Eyes: Yes: Conjunctiva Clear, EOM Intact HENT: Yes: Atraumatic, Normocephalic Neck: Yes: Supple, Trachea Midline Cardiovascular: Yes: Regular Rate and Rhythm Respiratory: Yes: Cough, Diminished, On Nasal O2, Rhonchi, Tachypnea. No: Accessory Muscle Use, Rales, Stridor, Wheezes ...Inspection: Yes: WNL ...Clubbing: No Gastrointestinal: Yes: Normal Bowel Sounds, Soft Renal/: Yes: WNL Musculoskeletal: Yes: WNL Extremities: Yes: WNL Edema: No Peripheral Pulses WNL: Yes Integumentary: Yes: WNL Neurological: Yes: WNL, Alert, Oriented ...Motor Strength: WNL Psychiatric: Yes: WNL, Alert, Oriented Labs: Laboratory Results - last 24 hr 07/02/19 07/03/19 07/03/19 06:30 08:05 08:05 WBC 16.8 H RBC 4.47 Hgb 12.5 Hct 38.2 MCV 85.4 MCH 28.0 MCHC 32.8 RDW 12.5 Plt Count 351 MPV 7.7 Absolute Neuts (auto) 15.2 H Neutrophils % 90.1 H Lymphocytes % 7.1 L D Monocytes % 2.4 L Eosinophils % 0.1 D Basophils % 0.3 Nucleated RBC % 0 Sodium 140 Potassium 4.2 Chloride 109 H Carbon Dioxide 23 Anion Gap 8 BUN 14.4 Creatinine 0.7 Est GFR (CKD-EPI)AfAm 132.09 Est GFR (CKD-EPI)NonAf 113.97 Random Glucose 162 H Calcium 8.2 L Phosphorus 3.5 Magnesium 2.8 H Total Bilirubin 0.5 AST 19 ALT 33 Alkaline Phosphatase 101 Total Protein 7.1 Albumin 2.7 L HIV 1&2 Ag/Ab, 4th Gen Non reactive Problem List - Problems (1) Pleural effusion on left Code(s): J90 - PLEURAL EFFUSION, NOT ELSEWHERE CLASSIFIED (2) Smoker Code(s): F17.200 - NICOTINE DEPENDENCE, UNSPECIFIED, UNCOMPLICATED (3) Chest pain Code(s): R07.9 - CHEST PAIN, UNSPECIFIED Qualifiers: Chest pain type: unspecified Qualified Code(s): R07.9 - Chest pain, unspecified (4) Pneumonia Code(s): J18.9 - PNEUMONIA, UNSPECIFIED ORGANISM Qualifiers: Pneumonia type: due to unspecified organism Laterality: left Lung location: lower lobe of lung Qualified Code(s): J18.9 - Pneumonia, unspecified organism (5) Shortness of breath Code(s): R06.02 - SHORTNESS OF BREATH Assessment/Plan Rocephin / Zithromax Supplemental O2 as needed Check sputum Do not feel there is enough fluid to safely sample at this point: if CP worsens and increasing fever: will need to R/O Empyema Daily Medrol BD [place] PRN Smoking cessation discussed Outpatient PFTs after discharge and stable Dr Robins Problem List - Problems (1) Pleural effusion on left Code(s): J90 - PLEURAL EFFUSION, NOT ELSEWHERE CLASSIFIED (2) Smoker Code(s): F17.200 - NICOTINE DEPENDENCE, UNSPECIFIED, UNCOMPLICATED (3) Chest pain Code(s): R07.9 - CHEST PAIN, UNSPECIFIED Qualifiers: Chest pain type: unspecified Qualified Code(s): R07.9 - Chest pain, unspecified (4) Pneumonia Code(s): J18.9 - PNEUMONIA, UNSPECIFIED ORGANISM Qualifiers: Pneumonia type: due to unspecified organism Laterality: left Lung location: lower lobe of lung Qualified Code(s): J18.9 - Pneumonia, unspecified organism (5) Shortness of breath Code(s): R06.02 - SHORTNESS OF BREATH
[2019-07-03] MEDS ORDERED: IBUPROFEN 800 MG/8 ML IJ IVPB PRN (11:09)
[2019-07-03] MEDS: AZITHROMYCIN IVPB 500 MG/250 ML BAG IVPB SCH (11:21)
[2019-07-04] MEDS: methylPREDNISolone NA SUCC 40 MG/1 ML VIAL IVPUSH SCH ×2 (02:51→09:03)
[2019-07-04] MEDS: HEPARIN NA (PORCINE) 5,000 UNITS/ML 1ML VIAL SQ SCH ×3 (06:04→21:10)
[2019-07-04] MEDS: ALBUTEROL SO4 2.5/IPRATROPIUM 0.5 INH SOL 3 ML VIAL.NEB. NEB SCH ×4 (08:00→21:09)
[2019-07-04 08:09] LABS: BASO % 0.3 % (0-2.0); HEMATOCRIT 34.8 % (35.4-49); HEMOGLOBIN 11.6 GM/dL (11.7-16.9); LYMPH % 5.8 % (8-40); MCH 28.2 pg (25.7-33.7); MCHC 33.4 g/dl (32.0-35.9); MEAN CELL VOLUME 84.3 fl (80-96); MONO % 3.6 % (3.8-10.2); NEUT % 90.3 % (42.8-82.8); PLATELET COUNT 385 K/MM3 (134-434); RBC 4.13 M/mm3 (4.00-5.60); RDW 12.3 % (11.9-15.9); WHITE BLOOD COUNT 24.3 K/mm3 (4.0-10.0)
[2019-07-04 08:38] LABS: BLOOD UREA NITROGEN 18.1 mg/dL (7-18); CALCIUM 8.4 mg/dL (8.5-10.1); CREATININE 0.7 mg/dL (0.55-1.3); MAGNESIUM 2.7 mg/dL (1.8-2.4); PHOSPHOROUS 3.7 mg/dL (2.5-4.9)
[2019-07-04] MEDS ORDERED: DEXTROSE 5%-WATER - 50 ML IVPB ONE (08:46)
[2019-07-04] MEDS ORDERED: cefTRIAXone SODIUM 1 GM VIAL ONE (08:46)
[2019-07-04] MEDS: CEFTRIAXONE 1 GM in DEXTROSE 5%-WATER - 50 ML IVPB SCH (09:03)
[2019-07-04] MEDS: AZITHROMYCIN IVPB 500 MG/250 ML BAG IVPB SCH (09:28)
[2019-07-04 09:44] LABS: ANISOCYTOSIS 0; MACROCYTOSIS 0; PLATELET ESTIMATE NORMAL
--- NOTE | 2019-07-04 11:37 | PN ---
Progress Note (short form) - Note Progress Note: Hospitalist Medicine still requiring 3L 02 per nurse at bedside. Pt states he is feeling better. Mentions that neb tx makes his throat feel dry, and makes him cough Vitals 07/03/19 05:00 Temperature 98.6 F Pulse Rate 74 Respiratory 18 Rate Blood Pressure 138/78 Physical Exam general: resting in bed, in NAD HEENT: NCAT, PERRLA neck: supple cardio: S1, S2, RRR. no r/m/g pulm: decreased breath sounds, no accessory m usage abdomen: nontender, nondistended LE: 2+ pulses, no edema Laboratory Tests 07/04/19 07/04/19 07:25 07:25 WBC 24.3 H Hgb 11.6 L Hct 34.8 L Plt Count 385 Sodium 140 Potassium 4.0 Chloride 109 H Carbon Dioxide 24 BUN 18.1 H Creatinine 0.7 Random Glucose 176 H Microbiology 07/02/19 13:16 Sputum - Expectorated Gram Stain - Final 07/02/19 15:10 Urine For Antigen Detection Legionella Antigen - Preliminary 07/02/19 15:10 Urine For Antigen Detection Streptococcus pneumoniae Antigen (M - Preliminary Imaging 07/01/19: CXR: weak inspiration w prominent mediastinum, fluid w atelectasis at the L base. 07/01/19: EKG: incomplete RBBB, qtc 416ms 07/02/19: Chest CTA: suboptimal opacification of the pulm vasculature, no def evidence of PE. moderate L pleural effusion with lower lobe consolidation/ atelectasis, trace R pleural effusion with basilar atelectasis. 07/03/19: CXR: since 07/01, progressive fluid, atelectasis and or infiltrate at the left base. some new atelectasis at the right base Assessment/Plan 44 year old man with PMH of Appendectomy and Tobacco use, who presented to ED for chest pain and SOB x3 days. #L pleural effusion #CAP -c/w cef, zithro (Day 4) -duonebs RQID, ventolin PRN -tylenol PRN for fever/pain -pl eff: not enough fluid to sample, however if chest pain worsens and becomes febrile, may need to r/o empyema. -on medrol 40mg q8h; may be able to taper today, as sx improved -on IVF , incentive spirometer -sputum cx, legionella (-) -Pulm: Dr. Robins -ID: Dr. Myles #F/E/N will monitor off IVF continue to follow lytes reg diet #PPX DVT: hep 5k TID #Dispo monitoring on med-surg smoking cessation needed outpatient PFTs after d/c once stable <Aliza Jordan - Last Filed: 07/04/19 12:51> - Note Progress Note: Seen and examined; please refer to resident note for further historical information. I agree with their assessment and plan as documented aside from as supplemented by myself. I independently verified all hickey historical information and exam findings and independently reviewed all diagnostic information. Noted to have leukocytosis but is on IV steroids per pulmonary. urinary Ags negative. Continue with current tx; once off O2 obtain pre and post and if symptomatically improved can FU with PCP as OP and complete abx course. 10 sys ROS done and negative aside from HPI GENERAL: Awake, alert, and fully oriented HEAD: Normal with no signs of trauma. EYES: Pupils equal, round and reactive to light, extraocular movements intact EARS, NOSE, THROAT: Ears normal, nares patent, oropharynx clear without exudates. Moist mucous membranes. NECK: Normal range of motion, supple without lymphadenopathy, JVD, or masses. LUNGS: Breath sounds with improved rales compared to admission hpi; no crackles. No accessory muscle use. HEART: Regular rate and rhythm, normal S1 and S2 without murmur, rub or gallop. ABDOMEN: Soft, nontender, not distended, normoactive bowel sounds MUSCULOSKELETAL: Normal range of motion at all joints. No bony deformities or tenderness. No CVA tenderness. NEUROLOGICAL: Cranial nerves II-XII intact. Normal speech. Normal gait. PSYCHIATRIC: Cooperative. Good eye contact. Appropriate mood and affect. SKIN: Warm, dry, normal turgor, no rashes or lesions noted, normal capillary refill. Echo pending Tele reviewed EKG reviewed CT reviewed; PNA noted A/P: Patient with pneumonia with effusion; continue with abx. ID and pulmonary consulted. Doesn't look to be enough fluid to frankly sample out of the lungs. Likely underlying COPD but no PFTs to r/o. Monitorting on floor, continue abx , BDs, and FU with subspecialty consults as indicated. Will need to discuss if there is enough fluid to feasably sample to r/o empyema if he clinically worsens but he does not appear to be doing so. Problems include: -Acute respiratory failure, improved -Pneumonia with effusion -Likely underlying COPD pending pulm eval -Hx tobacco abuse, counseled DVT px reviewed Full Code <Franki Lawson - Last Filed: 07/05/19 02:33>
--- NOTE | 2019-07-04 13:25 | PN ---
Progress Note (short form) - Note Progress Note: Clinically appears better today. Less SOB, cough and a Pleuritic CP today. No hemoptysis. Intake & Output 07/01/19 07/02/19 07/03/19 07/04/19 23:59 23:59 23:59 23:59 Intake Total 600 2150 200 Balance 600 2150 200 Weight 211 lb 211 lb 9.28 oz Last Vital Signs Temp Pulse Resp BP Pulse Ox 98.5 F 89 19 149/74 91 L 07/04/19 08:36 07/04/19 08:36 07/04/19 08:36 07/04/19 08:36 07/04/19 08:58 Active Medications Acetaminophen (Tylenol -) 650 mg PO Q4H PRN PRN Reason: FEVER Last Admin: 07/04/19 08:49 Dose: 650 mg Albuterol Sulfate (Ventolin 0.083% Nebulizer Soln -) 1 amp NEB Q4H PRN PRN Reason: SHORT OF BREATH/WHEEZING Albuterol/Ipratropium (Duoneb -) 1 amp NEB RQID [facility] Last Admin: 07/04/19 12:18 Dose: 1 amp Heparin Sodium (Porcine) (Heparin -) 5,000 unit SQ TID [facility] Last Admin: 07/04/19 06:04 Dose: 5,000 unit Ceftriaxone Sodium 1 gm/ (Dextrose) 50 mls @ 100 mls/hr IVPB DAILY [facility] Last Admin: 07/04/19 09:03 Dose: 100 mls/hr Azithromycin (Zithromax 500mg Ivpb (Pre-Docked)) 500 mg in 250 mls @ 250 mls/ hr IVPB DAILY [facility] Last Admin: 07/04/19 09:28 Dose: 250 mls/hr Ibuprofen (Caldolor Injection -) 800 mg IVPB Q8H PRN PRN Reason: FEVER Last Admin: 07/03/19 15:43 Dose: 800 mg Methylprednisolone Sodium Succinate (Solu-Medrol -) 40 mg IVPUSH DAILY [facility] Constitutional: Yes: No Distress, Calm Eyes: Yes: Conjunctiva Clear, EOM Intact HENT: Yes: Atraumatic, Normocephalic Neck: Yes: Supple, Trachea Midline Cardiovascular: Yes: Regular Rate and Rhythm Respiratory: Yes: Cough, Diminished, On Nasal O2, Rhonchi. No: Accessory Muscle Use, Rales, Stridor, Wheezes ...Inspection: Yes: WNL ...Clubbing: No Gastrointestinal: Yes: Normal Bowel Sounds, Soft Renal/: Yes: WNL Musculoskeletal: Yes: WNL Extremities: Yes: WNL Edema: No Peripheral Pulses WNL: Yes Integumentary: Yes: WNL Neurological: Yes: WNL, Alert, Oriented ...Motor Strength: WNL Psychiatric: Yes: WNL, Alert, Oriented Labs: Laboratory Results - last 24 hr 07/04/19 07/04/19 07:25 07:25 WBC 24.3 H RBC 4.13 Hgb 11.6 L Hct 34.8 L MCV 84.3 MCH 28.2 MCHC 33.4 RDW 12.3 Plt Count 385 MPV 8.0 Absolute Neuts (auto) 21.9 H Neutrophils % 90.3 H Neutrophils % (Manual) 88.6 H Band Neutrophils % 0.0 Lymphocytes % 5.8 L Lymphocytes % (Manual) 6.7 L Monocytes % 3.6 L Monocytes % (Manual) 1 L Eosinophils % 0.0 D Eosinophils % (Manual) 0.0 Basophils % 0.3 Basophils % (Manual) 0.0 Myelocytes % (Man) 0 Promyelocytes % (Man) 0 Blast Cells % (Manual) 0 Nucleated RBC % 0 Metamyelocytes 0 Hypochromia 0 Platelet Estimate Normal Polychromasia 0 Poikilocytosis 0 Anisocytosis 0 Microcytosis 0 Macrocytosis 0 Sodium 140 Potassium 4.0 Chloride 109 H Carbon Dioxide 24 Anion Gap 7 L BUN 18.1 H Creatinine 0.7 Est GFR (CKD-EPI)AfAm 132.09 Est GFR (CKD-EPI)NonAf 113.97 Random Glucose 176 H Calcium 8.4 L Phosphorus 3.7 Magnesium 2.7 H Problem List - Problems (1) Pleural effusion on left Code(s): J90 - PLEURAL EFFUSION, NOT ELSEWHERE CLASSIFIED (2) Smoker Code(s): F17.200 - NICOTINE DEPENDENCE, UNSPECIFIED, UNCOMPLICATED (3) Chest pain Code(s): R07.9 - CHEST PAIN, UNSPECIFIED Qualifiers: Chest pain type: unspecified Qualified Code(s): R07.9 - Chest pain, unspecified (4) Pneumonia Code(s): J18.9 - PNEUMONIA, UNSPECIFIED ORGANISM Qualifiers: Pneumonia type: due to unspecified organism Laterality: left Lung location: lower lobe of lung Qualified Code(s): J18.9 - Pneumonia, unspecified organism (5) Shortness of breath Code(s): R06.02 - SHORTNESS OF BREATH Assessment/Plan Rocephin / Zithromax Supplemental O2 as needed Check sputum Daily Medrol BD [place] PRN Smoking cessation discussed Outpatient PFTs after discharge and stable Dr Robins Problem List - Problems (1) Pleural effusion on left Code(s): J90 - PLEURAL EFFUSION, NOT ELSEWHERE CLASSIFIED (2) Smoker Code(s): F17.200 - NICOTINE DEPENDENCE, UNSPECIFIED, UNCOMPLICATED (3) Chest pain Code(s): R07.9 - CHEST PAIN, UNSPECIFIED Qualifiers: Chest pain type: unspecified Qualified Code(s): R07.9 - Chest pain, unspecified (4) Pneumonia Code(s): J18.9 - PNEUMONIA, UNSPECIFIED ORGANISM Qualifiers: Pneumonia type: due to unspecified organism Laterality: left Lung location: lower lobe of lung Qualified Code(s): J18.9 - Pneumonia, unspecified organism (5) Shortness of breath Code(s): R06.02 - SHORTNESS OF BREATH
[2019-07-04] MEDS ORDERED: PT OWN MED DRAWER 7, Y5N ONE (15:55)
[2019-07-05] MEDS: HEPARIN NA (PORCINE) 5,000 UNITS/ML 1ML VIAL SQ SCH ×3 (05:23→22:41)
[2019-07-05] MEDS: ALBUTEROL SO4 2.5/IPRATROPIUM 0.5 INH SOL 3 ML VIAL.NEB. NEB SCH ×4 (08:00→20:08)
[2019-07-05] MEDS ORDERED: cefTRIAXone SODIUM 1 GM VIAL ONE (09:32)
[2019-07-05] MEDS ORDERED: DEXTROSE 5%-WATER - 50 ML IVPB ONE (09:32)
[2019-07-05] MEDS: CEFTRIAXONE 1 GM in DEXTROSE 5%-WATER - 50 ML IVPB SCH (09:33)
[2019-07-05] MEDS: AZITHROMYCIN IVPB 500 MG/250 ML BAG IVPB SCH (09:36)
[2019-07-05] MEDS: methylPREDNISolone NA SUCC 40 MG/1 ML VIAL IVPUSH SCH (09:36)
[2019-07-05 10:47] LABS: BLOOD UREA NITROGEN 22.6 mg/dL (7-18); CALCIUM 8.2 mg/dL (8.5-10.1); CREATININE 0.8 mg/dL (0.55-1.3); MAGNESIUM 2.6 mg/dL (1.8-2.4); PHOSPHOROUS 3.1 mg/dL (2.5-4.9); POTASSIUM 3.6 mmol/L (3.5-5.1)
[2019-07-05 11:00] LABS: BASO % 0.5 % (0-2.0); EOS % 0.8 % (0-4.5); HEMATOCRIT 36.2 % (35.4-49); HEMOGLOBIN 11.9 GM/dL (11.7-16.9); LYMPH % 14.9 % (8-40); MCHC 32.9 g/dl (32.0-35.9); MEAN CELL VOLUME 85.3 fl (80-96); MEAN PLT VOLUME 8.2 fl (7.5-11.1); MONO % 3.9 % (3.8-10.2); NEUT % 79.9 % (42.8-82.8); PLATELET COUNT 395 K/MM3 (134-434); RBC 4.24 M/mm3 (4.00-5.60); RDW 12.6 % (11.9-15.9); WHITE BLOOD COUNT 18.4 K/mm3 (4.0-10.0)
--- NOTE | 2019-07-05 14:58 | ECHO ---
Name: JEANCARINA MARISCAL Exam:Adult Echocardiogram Study Date: 07/05/2019 02:08 PM Age: 44 yrs Height: 70 in Weight: 210 lb BSA: 2.1 m2 MMode/2D Measurements & Calculations IVSd: 1.0 cm Ao root diam: 2.5 cm LVIDd: 5.3 cm LA dimension: 4.9 cm LVIDs: 3.8 cm LVPWd: 1.4 cm LVPWs: 1.1 cm EDV(Teich): 137.5 ml ESV(Teich): 61.0 ml LVOT diam: 2.2 cm RV S Kole: 14.8 cm/sec Doppler Measurements & Calculations MV E max kole: 138.2 cm/sec Ao V2 max: 198.2 cm/sec MV A max kole: 89.8 cm/sec Ao max P.7 mmHg MV E/A: 1.5 MV dec time: 0.20 sec IVETH(V,D): 2.6 cm2 LV V1 max P.8 mmHg TR max kole: 261.0 cm/sec LV V1 max: 130.3 cm/sec TR max P.2 mmHg PA V2 max: 148.6 cm/sec Med Peak E' Kole: 8.0 cm/sec PA max P.9 mmHg Med E/e': 17.3 Lat Peak E' Kole: 12.6 cm/sec Lat E/e': 11.0 Left Ventricle There is mild concentric left ventricular hypertrophy. Left ventricular systolic function is normal. Ejection Fraction = 55-60%. Right Ventricle The right ventricle is normal in size and function. Atria The left atrium is mildly dilated. Right atrial size is normal. Mitral Valve The mitral valve is normal in structure and function. There is no mitral valve stenosis. There is mil d mitral regurgitation. Tricuspid Valve The tricuspid valve is normal in structure and function. There is mild tricuspid regurgitation. Right ventricular systolic pressure is normal. Aortic Valve The aortic valve opens well. No hemodynamically significant valvular aortic stenosis. No aortic regur gitation is present. Pulmonic Valve The pulmonic valve is not well seen, but is grossly normal. There is no pulmonic valvular stenosis. Great Vessels The aortic root is normal size. Pericardium/Pleura There is no pericardial effusion. Interpretation Summary There is mild concentric left ventricular hypertrophy. Left ventricular systolic function is normal. Ejection Fraction = 55-60%. The right ventricle is normal in size and function. The left atrium is mildly dilated. There is mild mitral regurgitation. There is mild tricuspid regurgitation. There is no pericardial effusion. MD Womack *Facundo 07/05/2019 02:58 PM
--- NOTE | 2019-07-05 15:09 | PN ---
Progress Note (short form) - Note Progress Note: Hospitalist Medicine still requiring 2L 02 per nurse. With dry cough. Per respiratory, sat 91 on RA during pre and post. Vitals 07/05/19 07/05/19 05:26 10:26 Temperature 98.8 F Pulse Rate 87 Respiratory 20 Rate Blood Pressure 130/69 O2 Sat by Pulse 91 L Oximetry (%) Physical Exam general: resting in bed, in NAD HEENT: NCAT, PERRLA neck: supple cardio: S1, S2, RRR. no r/m/g pulm: +b/l wheezes. few crackles. no accessory m usage abdomen: nontender, nondistended LE: 2+ pulses, no edema Laboratory Tests 07/02/19 07/05/19 07/05/19 06:30 09:33 09:33 WBC 18.4 H Hgb 11.9 Hct 36.2 Plt Count 395 Sodium 140 Potassium 3.6 Chloride 108 H Carbon Dioxide 25 BUN 22.6 H Creatinine 0.8 Random Glucose 159 H Triglycerides 196 H Cholesterol 175 Total LDL Cholesterol 121 H HDL Cholesterol 27 L TSH 1.74 Free T4 1.27 H HIV 1&2 Ag/Ab, 4th Gen Non reactive Microbiology 07/02/19 15:10 Urine For Antigen Detection Legionella Antigen - Final 07/02/19 15:10 Urine For Antigen Detection Streptococcus pneumoniae Antigen (M - Final 07/02/19 13:16 Sputum - Expectorated Gram Stain - Final 07/02/19 13:16 Sputum - Expectorated Sputum Culture - Final NORMAL RESPIRATORY FR[facility]O Imaging 07/01/19: CXR: weak inspiration w prominent mediastinum, fluid w atelectasis at the L base. 07/01/19: EKG: incomplete RBBB, qtc 416ms 07/02/19: Chest CTA: suboptimal opacification of the pulm vasculature, no def evidence of PE. moderate L pleural effusion with lower lobe consolidation/ atelectasis, trace R pleural effusion with basilar atelectasis. 07/03/19: CXR: since 07/01, progressive fluid, atelectasis and or infiltrate at the left base. some new atelectasis at the right base 07/05/19: CXR: cardiomegaly. LLL infiltrate unchanged with effusion is suspected 07/05/19: ECHO: mild concentric LVH, EF 55-60%, LA mildly dilated, mild MR, mild TR, no pericardial effusion Assessment/Plan 44 year old man with PMH of Appendectomy and Tobacco use, who presented to ED for chest pain and SOB x3 days. #L pleural effusion #CAP -c/w cef, zithro (Day 5) -duonebs RQID, ventolin PRN -tylenol PRN for fever/pain -pl eff: not enough fluid to sample, however if chest pain worsens and becomes febrile, may need to r/o empyema. -on medrol 40mg IVP qd; may be able to change to PO tomorrow -on IVF , incentive spirometer -sputum cx, legionella (-) -Pulm: Dr. Robins -ID: Dr. Myles #Health maintenance -f/u a1c -f/u TSH- ?thyroid resistance syndrome. -lipid panel; ASCVD risk 9.4% : will start on lipitor 40mg qd -will consult spout liner -ECHO noted above -f/u hep serologies #F/E/N will monitor off IVF continue to follow lytes reg diet #PPX DVT: hep 5k TID #Dispo monitoring on med-surg smoking cessation needed outpatient PFTs after d/c once stable
--- NOTE | 2019-07-05 15:17 | PN ---
Progress Note (short form) - Note Progress Note: Continues to clinically improve. Overall less SOB, cough and a pleuritic CP. No hemoptysis. Intake & Output 07/02/19 07/03/19 07/04/19 07/05/19 23:59 23:59 23:59 23:59 Intake Total 600 2150 1100 100 Balance 600 2150 1100 100 Weight 211 lb 9.28 oz Last Vital Signs Temp Pulse Resp BP Pulse Ox 98.8 F 87 20 130/69 91 L 07/05/19 05:26 07/05/19 10:26 07/05/19 05:26 07/05/19 05:26 07/05/19 10:26 Active Medications Acetaminophen (Tylenol -) 650 mg PO Q4H PRN PRN Reason: FEVER Last Admin: 07/04/19 08:49 Dose: 650 mg Albuterol Sulfate (Ventolin 0.083% Nebulizer Soln -) 1 amp NEB Q4H PRN PRN Reason: SHORT OF BREATH/WHEEZING Albuterol/Ipratropium (Duoneb -) 1 amp NEB RQID [facility] Last Admin: 07/05/19 12:01 Dose: 1 amp Heparin Sodium (Porcine) (Heparin -) 5,000 unit SQ TID [facility] Last Admin: 07/05/19 05:23 Dose: 5,000 unit Ceftriaxone Sodium 1 gm/ (Dextrose) 50 mls @ 100 mls/hr IVPB DAILY [facility] Last Admin: 07/05/19 09:33 Dose: 100 mls/hr Azithromycin (Zithromax 500mg Ivpb (Pre-Docked)) 500 mg in 250 mls @ 250 mls/ hr IVPB DAILY [facility] Last Admin: 07/05/19 09:36 Dose: 250 mls/hr Ibuprofen (Caldolor Injection -) 800 mg IVPB Q8H PRN PRN Reason: FEVER Last Admin: 07/03/19 15:43 Dose: 800 mg Methylprednisolone Sodium Succinate (Solu-Medrol -) 40 mg IVPUSH DAILY [facility] Last Admin: 07/05/19 09:36 Dose: 40 mg Constitutional: Yes: No Distress Eyes: Yes: Conjunctiva Clear, EOM Intact HENT: Yes: Atraumatic, Normocephalic Neck: Yes: Supple, Trachea Midline Cardiovascular: Yes: Regular Rate and Rhythm Respiratory: Yes: Cough, Diminished, On Nasal O2, Rhonchi. No: Accessory Muscle Use, Rales, Stridor, Wheezes ...Inspection: Yes: WNL ...Clubbing: No Gastrointestinal: Yes: Normal Bowel Sounds, Soft Renal/: Yes: WNL Musculoskeletal: Yes: WNL Extremities: Yes: WNL Edema: No Peripheral Pulses WNL: Yes Integumentary: Yes: WNL Neurological: Yes: WNL, Alert, Oriented ...Motor Strength: WNL Psychiatric: Yes: WNL, Alert, Oriented Labs: Laboratory Results - last 24 hr 07/05/19 07/05/19 09:33 09:33 WBC 18.4 H RBC 4.24 Hgb 11.9 Hct 36.2 MCV 85.3 MCH 28.0 MCHC 32.9 RDW 12.6 Plt Count 395 MPV 8.2 Absolute Neuts (auto) 14.7 H Neutrophils % 79.9 Lymphocytes % 14.9 D Monocytes % 3.9 Eosinophils % 0.8 D Basophils % 0.5 Nucleated RBC % 0 Sodium 140 Potassium 3.6 Chloride 108 H Carbon Dioxide 25 Anion Gap 7 L BUN 22.6 H Creatinine 0.8 Est GFR (CKD-EPI)AfAm 125.04 Est GFR (CKD-EPI)NonAf 107.88 Random Glucose 159 H Calcium 8.2 L Phosphorus 3.1 Magnesium 2.6 H Triglycerides 196 H Cholesterol 175 Total LDL Cholesterol 121 H HDL Cholesterol 27 L TSH 1.74 Free T4 1.27 H Problem List - Problems (1) Pleural effusion on left Code(s): J90 - PLEURAL EFFUSION, NOT ELSEWHERE CLASSIFIED (2) Smoker Code(s): F17.200 - NICOTINE DEPENDENCE, UNSPECIFIED, UNCOMPLICATED (3) Chest pain Code(s): R07.9 - CHEST PAIN, UNSPECIFIED Qualifiers: Chest pain type: unspecified Qualified Code(s): R07.9 - Chest pain, unspecified (4) Pneumonia Code(s): J18.9 - PNEUMONIA, UNSPECIFIED ORGANISM Qualifiers: Pneumonia type: due to unspecified organism Laterality: left Lung location: lower lobe of lung Qualified Code(s): J18.9 - Pneumonia, unspecified organism (5) Shortness of breath Code(s): R06.02 - SHORTNESS OF BREATH Assessment/Plan Rocephin / Zithromax per ID: To discuss further plans Supplemental O2 as needed Daily Medrol BD TX PRN Smoking cessation discussed Outpatient PFTs after discharge and stable Dr Robins Problem List - Problems (1) Pleural effusion on left Code(s): J90 - PLEURAL EFFUSION, NOT ELSEWHERE CLASSIFIED (2) Smoker Code(s): F17.200 - NICOTINE DEPENDENCE, UNSPECIFIED, UNCOMPLICATED (3) Chest pain Code(s): R07.9 - CHEST PAIN, UNSPECIFIED Qualifiers: Chest pain type: unspecified Qualified Code(s): R07.9 - Chest pain, unspecified (4) Pneumonia Code(s): J18.9 - PNEUMONIA, UNSPECIFIED ORGANISM Qualifiers: Pneumonia type: due to unspecified organism Laterality: left Lung location: lower lobe of lung Qualified Code(s): J18.9 - Pneumonia, unspecified organism (5) Shortness of breath Code(s): R06.02 - SHORTNESS OF BREATH
--- NOTE | 2019-07-05 16:41 | PN ---
Teaching Attending Note Name of Resident: Aliza Jordan ATTENDING PHYSICIAN STATEMENT I saw and evaluated the patient. I reviewed the resident's note and discussed the case with the resident. I agree with the resident's findings and plan as documented. 44 M history of obesity, active smoker, admitted for CAP pneumonia in setting of respiratory distress. Patient endorses improvement with SOB. No fevers. Pleural effusions too small to tap as per pulmonary. PE general: resting in bed, in NAD, speaking in full sentences HEENT: NCAT, PERRLA neck: supple cardio: S1, S2, RRR. no r/m/g pulm: no wheezing, faint bibasilar crackles abdomen: non-tender, non-distended LE: 2+ pulses, no edema Last Vital Signs Temp Pulse Resp BP Pulse Ox 98.6 F 74 18 124/66 91 L 07/05/19 14:00 07/05/19 14:00 07/05/19 14:00 07/05/19 14:00 07/05/19 10:26 Laboratory Results - last 24 hr 07/05/19 07/05/19 09:33 09:33 WBC 18.4 H RBC 4.24 Hgb 11.9 Hct 36.2 MCV 85.3 MCH 28.0 MCHC 32.9 RDW 12.6 Plt Count 395 MPV 8.2 Absolute Neuts (auto) 14.7 H Neutrophils % 79.9 Lymphocytes % 14.9 D Monocytes % 3.9 Eosinophils % 0.8 D Basophils % 0.5 Nucleated RBC % 0 Sodium 140 Potassium 3.6 Chloride 108 H Carbon Dioxide 25 Anion Gap 7 L BUN 22.6 H Creatinine 0.8 Est GFR (CKD-EPI)AfAm 125.04 Est GFR (CKD-EPI)NonAf 107.88 Random Glucose 159 H Calcium 8.2 L Phosphorus 3.1 Magnesium 2.6 H Triglycerides 196 H Cholesterol 175 Total LDL Cholesterol 121 H HDL Cholesterol 27 L TSH 1.74 Free T4 1.27 H Microbiology 07/02/19 13:16 Sputum - Expectorated Gram Stain - Final 07/02/19 13:16 Sputum - Expectorated Sputum Culture - Final NORMAL RESPIRATORY FREDO 07/02/19 15:10 Urine For Antigen Detection Legionella Antigen - Final 07/02/19 15:10 Urine For Antigen Detection Streptococcus pneumoniae Antigen (M - Final Current Medications Generic Name Dose Route Start Last Admin Trade Name Freq PRN Reason Stop Dose Admin Acetaminophen 650 mg 07/02/19 08:26 07/04/19 08:49 Tylenol - PO 650 mg Q4H PRN Administration FEVER Albuterol Sulfate 1 amp 07/02/19 17:54 Ventolin 0.083% Nebulizer Soln - NEB Q4H PRN SHORT OF BREATH/WHEEZING Albuterol/Ipratropium 1 amp 07/02/19 20:00 07/05/19 16:17 Duoneb - NEB 1 amp RQID [facility] Administration Heparin Sodium (Porcine) 5,000 unit 07/02/19 06:00 07/05/19 15:52 Heparin - SQ 5,000 unit TID [facility] Administration Ceftriaxone Sodium 1 gm/ 50 mls @ 100 mls/hr 07/02/19 10:00 07/05/19 09:33 Dextrose IVPB 100 mls/hr DAILY [facility] Administration Azithromycin 500 mg in 250 mls @ 250 mls/hr 07/03/19 09:21 07/05/19 09:36 Zithromax 500mg Ivpb (Pre-Docked) IVPB 250 mls/hr DAILY [facility] Administration Ibuprofen 800 mg 07/03/19 11:09 07/03/19 15:43 Caldolor Injection - IVPB 800 mg Q8H PRN Administration FEVER Methylprednisolone Sodium Succinate 40 mg 07/05/19 10:00 07/05/19 09:36 Solu-Medrol - IVPUSH 40 mg DAILY [facility] Administration A/P: 44 M active smoker, obese, admitted for CAP pneumonia complicated by bilateral pleural effusions, not tapable by pulmonary, improving but still requiring supplemental O2 therapy for hypoxemia. CAP Continue antibiotics with Ceftriaxone/Azithromycin Continue duonebs PRN, steroids Strep/Legionella neg., Sputum cx unremarkable Pulmonary consulted, cont. O2 therapy, PFTs as outpatient, in house counsel on smoking cessation Follow up with ID for further antibiotic course recommendation Continue pulmonary toileting Leukocytosis Likely secondary to infection and IV steroids Improving WBC count Cont. CBC daily Hyperglycemia on chemistry Possibly due to steroids however in view of obesity and active smoking will obtain basic labs Send A1c, lipids, TSH Echo obtained, grossly unremarkable, normal EF, no signs of pulmonary HTN or RV strain Obesity BMI: >30, counseled patient on diet, exercise and weight loss High ASCVD In view of LDL >100, high ASCVD score Start moderate to high intensity statin LFTs OK, no history of liver disease DVT ppx: Heparin SC GI ppx: PPI or H2 harrison in view of NSAID use Monitor electrolytes daily
--- NOTE | 2019-07-05 18:57 | CONS ---
DATE OF CONSULTATION: 07/02/2019 REQUESTED BY: Hospitalist service. This is a 44-year-old man, no significant past medical history, admitted with cough and chest discomfort for 3 days. He notes left-sided pain of his chest with cough, mainly in the back. He has no fevers, chills, nausea, vomiting. He has had yellow sputum. He denies any hemoptysis. In the emergency room, he had imaging that included a chest CTA that showed moderate left pleural effusion with left lower lobe consolidation and he had a chest x-ray as well that showed a left-sided atelectasis. On admission, his temperature was normal and he had a white count of 16,000. I am asked to see him for antibiotic recommendations. He was seen at the [facility] and given cough medicine. There is no history of hemoptysis. He has no known TB exposure. He works in a kitchen cleaning. His past medical history is negative. He has never had any surgery. SOCIAL HISTORY: He smokes. He is originally from [place]. He has no known drug allergies. He takes no medications. Review of systems is notable for the chills, the fever, and the cough. He has had no weight loss and he has had no GI or other symptoms. He reports chest discomfort with cough, mainly located in his left back. PHYSICAL EXAMINATION: Vital Signs: His current temperature is 99.1. Pulse is 66. Blood pressure 131/66. Respiratory rate 18. He is saturating 94% on room air. General: He is a healthy-appearing young man in no acute distress. HEENT: He is normocephalic. His eyes are anicteric. Neck: Supple. He has no cervical or axillary adenopathy. Lungs: He has diminished breath sounds at the left base. Heart: Regular rate and rhythm. Abdomen: Soft, nontender. Extremities: Without edema. Skin: He has no rash. White count was 16.6 last night, this morning is 14.3. Chemistries: BUN 11, creatinine 0.6. LFTs are normal. HIV test is pending. Sputum Gram stain shows a few polys with mixed marsha. In summary, this is a 44-year-old man with community-acquired pneumonia. He is a smoker. Would continue ceftriaxone and Zithromax per Pulmonary. There is not enough fluid at this point to tap. He has gotten multiple antibiotics at this point, so there is no point for blood cultures unless he has further fever. Would continue ceftriaxone and Zithromax, check urinary antigens, can change, please call back as needed. RAINE ROMERO M.D. [id number]
[2019-07-05] MEDS ORDERED: ATORVASTATIN CA 40 MG TABLET (FP) PO SCH (22:00)
[2019-07-06] MEDS: HEPARIN NA (PORCINE) 5,000 UNITS/ML 1ML VIAL SQ SCH ×2 (05:15→14:03)
[2019-07-06 08:01] VITALS: TEMP 98.6
[2019-07-06 08:02] LABS: BASO % 0.9 % (0-2.0); EOS % 2.1 % (0-4.5); HEMATOCRIT 37.5 % (35.4-49); HEMOGLOBIN 12.5 GM/dL (11.7-16.9); MCH 28.3 pg (25.7-33.7); MCHC 33.3 g/dl (32.0-35.9); MEAN PLT VOLUME 7.6 fl (7.5-11.1); MONO % 5.2 % (3.8-10.2); NEUT % 65.8 % (42.8-82.8); PLATELET COUNT 404 K/MM3 (134-434); RBC 4.41 M/mm3 (4.00-5.60); RDW 12.8 % (11.9-15.9); WHITE BLOOD COUNT 14.9 K/mm3 (4.0-10.0)
[2019-07-06] MEDS: ALBUTEROL SO4 2.5/IPRATROPIUM 0.5 INH SOL 3 ML VIAL.NEB. NEB SCH ×2 (08:15→11:44)
[2019-07-06 08:21] LABS: BLOOD UREA NITROGEN 22.1 mg/dL (7-18); CALCIUM 8.3 mg/dL (8.5-10.1); CREATININE 0.8 mg/dL (0.55-1.3); MAGNESIUM 2.7 mg/dL (1.8-2.4); PHOSPHOROUS 4.5 mg/dL (2.5-4.9); POTASSIUM 3.7 mmol/L (3.5-5.1)
--- NOTE | 2019-07-06 10:56 | PN ---
Progress Note (short form) - Note Progress Note: Continues to clinically improve. Overall less SOB, cough and a pleuritic CP. No hemoptysis. CXR: Bibasilar infiltrates Intake & Output 07/03/19 07/04/19 07/05/19 07/06/19 23:59 23:59 23:59 23:59 Intake Total 2150 1100 1050 500 Balance 2150 1100 1050 500 Last Vital Signs Temp Pulse Resp BP Pulse Ox 98.6 F 63 20 134/74 95 07/06/19 06:00 07/06/19 06:00 07/06/19 06:00 07/06/19 06:00 07/05/19 21:00 Active Medications Acetaminophen (Tylenol -) 650 mg PO Q4H PRN PRN Reason: FEVER Last Admin: 07/04/19 08:49 Dose: 650 mg Albuterol Sulfate (Ventolin 0.083% Nebulizer Soln -) 1 amp NEB Q4H PRN PRN Reason: SHORT OF BREATH/WHEEZING Albuterol/Ipratropium (Duoneb -) 1 amp NEB RQID [facility] Last Admin: 07/06/19 08:15 Dose: 1 amp Atorvastatin Calcium (Lipitor -) 40 mg PO HS [facility] Last Admin: 07/05/19 22:41 Dose: 40 mg Heparin Sodium (Porcine) (Heparin -) 5,000 unit SQ TID [facility] Last Admin: 07/06/19 05:15 Dose: 5,000 unit Ceftriaxone Sodium 1 gm/ (Dextrose) 50 mls @ 100 mls/hr IVPB DAILY [facility] Last Admin: 07/05/19 09:33 Dose: 100 mls/hr Azithromycin (Zithromax 500mg Ivpb (Pre-Docked)) 500 mg in 250 mls @ 250 mls/ hr IVPB DAILY [facility] Last Admin: 07/05/19 09:36 Dose: 250 mls/hr Ibuprofen (Caldolor Injection -) 800 mg IVPB Q8H PRN PRN Reason: FEVER Last Admin: 07/03/19 15:43 Dose: 800 mg Methylprednisolone Sodium Succinate (Solu-Medrol -) 40 mg IVPUSH DAILY [facility] Last Admin: 07/05/19 09:36 Dose: 40 mg Constitutional: Yes: No Distress Eyes: Yes: Conjunctiva Clear, EOM Intact HENT: Yes: Atraumatic, Normocephalic Neck: Yes: Supple, Trachea Midline Cardiovascular: Yes: Regular Rate and Rhythm Respiratory: Yes: Cough, Diminished, On Nasal O2, Rhonchi. No: Accessory Muscle Use, Rales, Stridor, Wheezes ...Inspection: Yes: WNL ...Clubbing: No Gastrointestinal: Yes: Normal Bowel Sounds, Soft Renal/: Yes: WNL Musculoskeletal: Yes: WNL Extremities: Yes: WNL Edema: No Peripheral Pulses WNL: Yes Integumentary: Yes: WNL Neurological: Yes: WNL, Alert, Oriented ...Motor Strength: WNL Psychiatric: Yes: WNL, Alert, Oriented Labs: Laboratory Results - last 24 hr 07/05/19 07/05/19 07/05/19 09:33 09:33 09:33 WBC 18.4 H RBC 4.24 Hgb 11.9 Hct 36.2 MCV 85.3 MCH 28.0 MCHC 32.9 RDW 12.6 Plt Count 395 MPV 8.2 Absolute Neuts (auto) 14.7 H Neutrophils % 79.9 Lymphocytes % 14.9 D Monocytes % 3.9 Eosinophils % 0.8 D Basophils % 0.5 Nucleated RBC % 0 Sodium 140 Potassium 3.6 Chloride 108 H Carbon Dioxide 25 Anion Gap 7 L BUN 22.6 H Creatinine 0.8 Est GFR (CKD-EPI)AfAm 125.04 Est GFR (CKD-EPI)NonAf 107.88 Random Glucose 159 H Hemoglobin A1c % 6.7 H Calcium 8.2 L Phosphorus 3.1 Magnesium 2.6 H Triglycerides 196 H Cholesterol 175 Total LDL Cholesterol 121 H HDL Cholesterol 27 L TSH 1.74 Free T4 1.27 H 07/06/19 07/06/19 07:25 07:25 WBC 14.9 H RBC 4.41 Hgb 12.5 Hct 37.5 MCV 85.0 MCH 28.3 MCHC 33.3 RDW 12.8 Plt Count 404 MPV 7.6 Absolute Neuts (auto) 9.8 H Neutrophils % 65.8 Lymphocytes % 26.0 D Monocytes % 5.2 Eosinophils % 2.1 D Basophils % 0.9 Nucleated RBC % 0 Sodium 139 Potassium 3.7 Chloride 106 Carbon Dioxide 27 Anion Gap 6 L BUN 22.1 H Creatinine 0.8 Est GFR (CKD-EPI)AfAm 125.04 Est GFR (CKD-EPI)NonAf 107.88 Random Glucose 109 H Hemoglobin A1c % Calcium 8.3 L Phosphorus 4.5 Magnesium 2.7 H Triglycerides Cholesterol Total LDL Cholesterol HDL Cholesterol TSH Free T4 Problem List - Problems (1) Pleural effusion on left Code(s): J90 - PLEURAL EFFUSION, NOT ELSEWHERE CLASSIFIED (2) Smoker Code(s): F17.200 - NICOTINE DEPENDENCE, UNSPECIFIED, UNCOMPLICATED (3) Chest pain Code(s): R07.9 - CHEST PAIN, UNSPECIFIED Qualifiers: Chest pain type: unspecified Qualified Code(s): R07.9 - Chest pain, unspecified (4) Pneumonia Code(s): J18.9 - PNEUMONIA, UNSPECIFIED ORGANISM Qualifiers: Pneumonia type: due to unspecified organism Laterality: left Lung location: lower lobe of lung Qualified Code(s): J18.9 - Pneumonia, unspecified organism (5) Shortness of breath Code(s): R06.02 - SHORTNESS OF BREATH Assessment/Plan Can switch to PO Augmentin 875 BID to complete 10 days in total of ABX DC steroids BD TX PRN Smoking cessation discussed Outpatient PFTs after discharge and stable There is no Pulmonary contraindication for DC Dr Robins Problem List - Problems (1) Pleural effusion on left Code(s): J90 - PLEURAL EFFUSION, NOT ELSEWHERE CLASSIFIED (2) Smoker Code(s): F17.200 - NICOTINE DEPENDENCE, UNSPECIFIED, UNCOMPLICATED (3) Chest pain Code(s): R07.9 - CHEST PAIN, UNSPECIFIED Qualifiers: Chest pain type: unspecified Qualified Code(s): R07.9 - Chest pain, unspecified (4) Pneumonia Code(s): J18.9 - PNEUMONIA, UNSPECIFIED ORGANISM Qualifiers: Pneumonia type: due to unspecified organism Laterality: left Lung location: lower lobe of lung Qualified Code(s): J18.9 - Pneumonia, unspecified organism (5) Shortness of breath Code(s): R06.02 - SHORTNESS OF BREATH
[2019-07-06] MEDS: AZITHROMYCIN IVPB 500 MG/250 ML BAG IVPB SCH (11:01)
[2019-07-06] MEDS: CEFTRIAXONE 1 GM in DEXTROSE 5%-WATER - 50 ML IVPB SCH (11:01)
[2019-07-06] MEDS: methylPREDNISolone NA SUCC 40 MG/1 ML VIAL IVPUSH SCH (11:02)
--- NOTE | 2019-07-06 12:35 | DS ---
Physical Examination Vital Signs: Vital Signs Temperature 98.6 F 07/06/19 06:00 Pulse Rate 63 07/06/19 06:00 Respiratory Rate 20 07/06/19 06:00 Blood Pressure 134/74 07/06/19 06:00 O2 Sat by Pulse Oximetry (%) 95 07/05/19 21:00 Findings/Remarks: Patient presents with community-acquired pneumonia and is improved after antibiotics. Leukocytosis is likely secondary to the infection/IV steroids. Hyperglycemia is improved and the patient is ISC AV CVD score so they were discharged on statin. Cleared by pulm with taper in DC planning. 10 item review of systems completed and is negative aside from as discussed in the subjective data in my own/the resident documentation. VS, labs, imaging reviewed NAD, AAO, resting comfortably in bed. RRR s1/2 no mgr Normal muscle tone, moves all 5 extremities with normal apparent strength Neck is supple, trachea midline, no kobi LN With greatly improved wheezes compared to prior exam descriptions with sym expansion NT ND +BS no kobi organomegaly CN2-12 wnl; no FND NC AT EOMI PERRLA Normal mood, appropriate behavior, euthymic affect No skin breakdown or rashes noted Labs: CBC, BMP 07/06/19 07:25 07/06/19 07:25 Discharge Summary Problems reviewed: Yes Reason For Visit: SHORTNESS OF BREATH,PNEUMONIA Current Active Problems Chest pain (Acute) Pleural effusion on left (Acute) Pneumonia (Acute) Shortness of breath (Acute) Smoker (Acute) Condition: Improved - Instructions Diet, Activity, Other Instructions: You were in the hospital because you had fluid on the left side of your lung, as well as a left sided pneumonia. You were treated with IV antibiotics, steroids, and oxygen. You improved and are being sent home. -You will need followup Xray to ensure the effusion has sesolved -You were referred to primary care with Dr. Marte with the resident clinic for further followup. You were also referred to pulmonary medicine upon DC. Medications Please take the following antibiotics: Complete the course of augmentin as prescribed We are sending you with an inhaler; please take albuterol (ventolin) 1 puff every 4 hours as needed Imaging You will need a repeat chest x-ray done this week to determine if the fluid on the left side of your lung has improved. Testing You will need outpatient pulmonary function testing with a lung doctor. Referrals: David Marte MD [Staff Physician] - 1 Week Cesar Robins MD [Staff Physician] - 1 Week Disposition: HOME - Home Medications Comprehensive Discharge Medication List: Ambulatory Orders Albuterol Sulfate Inhaler - [Ventolin HFA Inhaler -] 1 - 2 inh PO QID #1 inhaler 07/06/19 Amoxicillin/Potassium Clav [Augmentin 875-125 Tablet] 1 each PO BID 7 Days #14 tablet 07/06/19 Atorvastatin Ca [Lipitor] 40 mg PO HS #30 tablet 07/06/19 This patient is new to me today: No Emergency Visit: No Critical Care patient: No - Discharge Referral Referred to [facility] Med P.C[facility] No
[2019-07-06 13:54] LABS: ANISOCYTOSIS 0; MACROCYTOSIS 0; PLATELET ESTIMATE NORMAL
[2019-07-06] MEDS ORDERED: FLU VACCINE QUAD 60 MCG/0.5 ML (MDV 19-20) IM ONE (14:48)
[2019-07-06] MEDS ORDERED: PNEUMOC 13-VAL CONJ-DIP CRM/PF 0.5 ML DISP.SYRIN IM ONE (14:49)
[2019-07-06] MEDS ORDERED: PNEUMOCOCCAL 23 VACCINE 0.5 ML VIAL IM ONE (15:00)
[2019-07-06 16:51] VITALS: BP 132/72; PULSE 60
[2019-07-06] MEDS ORDERED: AMOX TR/POT CLAV 875MG/125MG TABLETS (FP) PO SCH (17:30)
[2019-07-08 20:11] LABS: HEP B CORE AB, TOT Negative (Negative)
== END 2019-07-06 16:36 | disposition home or self-care (01) | DRG 143 ==
LOC: JER 20:36 → JERBED 07-02 03:21 → J5S 07-02 14:20
PROVIDERS: ADMIT Internal Medicine; ATTEND Internal Medicine
DX: J90 Pleural effusion, not elsewhere classified (principal); J96.00 Acute respiratory failure, unspecified whether with hypoxia or hypercapnia; E87.6 Hypokalemia; J98.11 Atelectasis; J18.1 Lobar pneumonia, unspecified organism; E66.9 Obesity, unspecified; Z68.30 Body mass index [BMI] 30.0-30.9, adult; R07.9 Chest pain, unspecified; F17.210 Nicotine dependence, cigarettes, uncomplicated; E88.09 Other disorders of plasma-protein metabolism, not elsewhere classified
CPT/HCPCS: 36415; 71045-TC-FY; 71046-TC-FY; 71275-TC; 80048; 80053; 80061; 82550; 83036; 83721; 83735; 83880; 84100; 84439; 84443; 84484; 85025; 85379; 85610; 85730; 86704; 86706; 86707; 86708; 86709; 87070; 87205; 87340; 87389; 87522; 87899; 90732; 93005; 93010; 93306-TC; 94010; 94640; 94761; 99285-25; G0008; G0009; J0131; J1644; J7030; Q2036; Q9967